=== PATIENT | female | born 1940 | race Caucasian/White ===

== ENCOUNTER → 2017-04-20 | Outpatient (CLI) | payer OTHER, BC ==
--- NOTE | 2017-04-20 14:35 | DIAGNOSTIC IMAGING REPORT ---
FLUOROSCOPICALLY GUIDED RIGHT HIP ANESTHETIC AND STEROID INJECTION CLINICAL HISTORY: DJD RIGHT HIP right hip pain COMPARISON STUDY: None FLUOROSCOPY TIME: 16 seconds. NUMBER OF FLUOROSCOPIC IMAGES: 1 FINDINGS: A timeout was performed. The risks the procedure were explained the patient, and informed consent was obtained. The patient was prepped and draped in sterile fashion. The skin was anesthetized 1% lidocaine. Under fluoroscopic guidance, a 22-gauge spinal needle was introduced into the joint capsule. Intrathecal location was documented with injection of Optiray 300. 2 cc of betamethasone and 5 cc of 0.5% bupivacaine were instilled intra-articularly. IMPRESSION: Successful fluoroscopically guided intra-articular right hip injection. 2 cc of betamethasone and 5 cc of 0.5% bupivacaine were instilled. Electronically signed by: Gonzalo Hendricks M.D. 04/20/2017 2:34 PM Dictated Date/Time: 04/20/2017 2:31 PM
== END | disposition home or self-care (01) ==
LOC: C.RADBC 13:22
PROVIDERS: ATTEND Orthopaedic Surgery
DX: M16.11 Unilateral primary osteoarthritis, right hip (principal)